=== PATIENT | female | born 1995 | race Caucasian/White ===

== ENCOUNTER 2017-01-19 15:05 | Emergency (ER) | payer BC ==
[2017-01-19 15:22] VITALS: BP 129/60
--- NOTE | 2017-02-21 12:09 | ED ---
Lower Extremity - HPI Summary HPI Summary: Pt here w/ Lt hallux redness and tenderness. H/o ingrown toenail and appears to have the same today. She's had these in the past and required surgery. Denies swelling, streaking, purulent drainage, fever, chills, toe itself feeling hot - just has soreness and redness since nail has advanced into tissue. No known trauma but thinks her shoes have been rubbing here as well. - History of Current Complaint Chief Complaint: EDExtremityLower Stated Complaint: POSS INF LT FOOT Time Seen by Provider: 01/19/17 17:55 Hx Obtained From: Patient Pain Intensity: 0 Pain Scale Used: 0-10 Numeric PMH/Surg Hx/FS Hx/Imm Hx Previously Healthy: Yes Infectious Disease History: Yes Infectious Disease History: Denies: Hx of Known/Suspected MRSA, Traveled Outside the in Last 30 Days - Social History Lives: With Family Alcohol Use: Occasionally Hx Substance Use: No Substance Use Type: Reports: None Hx Tobacco Use: No Smoking Status (MU): Never Smoked Tobacco Review of Systems Constitutional: Negative Musculoskeletal: Negative Skin: Other - toe redness as in HPI Neurological: Negative Negative: Weakness, Paresthesia, Numbness Psychological: Normal All Other Systems Reviewed And Are Negative: Yes Physical Exam Triage Information Reviewed: Yes Vital Signs On Initial Exam: Initial Vitals Temp Pulse Resp BP Pulse Ox 98.7 F 82 14 129/60 99 01/19/17 15:20 01/19/17 15:20 01/19/17 15:20 01/19/17 15:20 01/19/17 15:20 Vital Signs Reviewed: Yes Appearance: Positive: Well-Appearing, No Pain Distress, Well-Nourished Skin: Positive: Warm, Dry - mild erythema about the paronychial region of Lt hallux - toe nail does appear to be encroaching on skin here - no fever to touch , no edema, no streaking, no drainage, no lesions or scabbing ENT: Positive: Hearing grossly normal Respiratory/Lung Sounds: Positive: Breath Sounds Present Cardiovascular: Positive: Pulses are Symmetrical in both Upper and Lower Extremities Musculoskeletal: Positive: Normal, Strength/ROM Intact Neurological: Positive: Normal, Sensory/Motor Intact Psychiatric: Positive: Normal Diagnostics - Vital Signs Vital Signs Temp Pulse Resp BP Pulse Ox 01/19/17 15:20 98.7 F 82 14 129/60 99 - Laboratory Lab Statement: Any lab studies that have been ordered have been reviewed, and results considered in the medical decision making process. Lower Extremity Course/Dx - Diagnoses Provider Diagnoses: Ingrown left big toenail Discharge - Discharge Plan Condition: Stable Disposition: HOME Patient Education Materials: Ingrown Nail (ED) Referrals: Sindhu Everett DPM [Doctor of Podiatric Medicine] - Additional Instructions: Rest, elevate Warm epsom salt soaks - wash well and rinse after then dry and apply topical antibiotic ointment Wear open toed shoes to prevent friction sores You may take ibuprofen 400mf every 4 hours with food for pain Follow-up with podiatry - call tomorrow to schedule an appointment *If you develop swelling, streaking, purulent drainage, fever, chills, go to [facility] or return to ED
== END 2017-01-19 18:33 | disposition home or self-care (01) ==
LOC: ED 15:05
DX: L60.0 Ingrowing nail (principal)
CPT/HCPCS: 99281